=== PATIENT | female | born 1960 | race Caucasian/White ===

== ENCOUNTER 2021-10-20 11:24 | Outpatient (CLI) | payer OTHER | END 2021-10-20 11:25 | disposition home or self-care (01) | LOC: CSHMAMMO 11:24 | PROVIDERS: ATTEND Obstetrics & Gynecology | DX: Z12.31 Encounter for screening mammogram for malignant neoplasm of breast (principal) | CPT/HCPCS: 77063; 77067 ==

== ENCOUNTER 2023-12-29 12:50 | Outpatient (CLI) | payer OTHER | END 2023-12-29 12:51 | disposition home or self-care (01) | LOC: CSHMAMMO 12:50 | PROVIDERS: ATTEND Obstetrics & Gynecology | DX: Z12.31 Encounter for screening mammogram for malignant neoplasm of breast (principal); Z01.419 Encounter for gynecological examination (general) (routine) without abnormal findings; Z78.0 Asymptomatic menopausal state; M85.89 Other specified disorders of bone density and structure, multiple sites | CPT/HCPCS: 77063; 77067; 77080 ==

== ENCOUNTER 2025-01-02 13:31 | Outpatient (CLI) | payer OTHER | END 2025-01-02 13:32 | disposition home or self-care (01) | LOC: CSHMAMMO 13:31 | PROVIDERS: ATTEND Obstetrics & Gynecology | DX: Z12.31 Encounter for screening mammogram for malignant neoplasm of breast (principal) | CPT/HCPCS: 77063; 77067 ==